=== PATIENT | male | born 1965 | race Caucasian/White ===

== ENCOUNTER 2023-10-21 21:00 | Emergency (ER) | payer OTHER, SELFPAY ==
[2023-10-21] VITALS (7 sets, daily range): BP systolic 136–231; BP diastolic 88–129; PULSE 91–145; RESP 14–30; TEMP 36.3; O2SAT 95–100; BMI 26.2
--- NOTE | 2023-10-21 21:20 | PC.NURSE ---
Patient states that about 5-6 weeks ago he started feeling like he didn't want to be alive. His last SI was at age 18 when he wanted to jump off a bridge. He stopped himself back then. This time he currently does not have a plan to harm himself and does not want to act on it. He feels unloved and unappreciated.
--- NOTE | 2023-10-21 21:40 | PC.NURSE ---
Pt was placed in safe room, is risk SI, pt is refusing to cooperate with safety measures and refusing to participate in assessment. Pt has also refused to given urine for testing. Pt was brought to ED by [facility] and came in through the main door. Pt denies that he has anything in his pockets, stating he was searched by [facility]. Pt states that he will not answer questions until he gets his phone back. Attempted to reassure patient that he could have it back when the provider has seen him and given the OK for him to have it. He continues to refuse participation.
--- NOTE | 2023-10-21 22:02 | ED_ITS ---
HPI - Psych <Ashley Maza, DO - Last Filed: 10/23/23 02:18> General Chief Complaint: Psychiatric Symptoms Stated Complaint: JUANY Time Seen by Provider: 10/21/23 21:33 Source: patient Mode of arrival: Ambulatory History of Present Illness HPI Narrative: Patient 58-year-old male brought in by police with JUANY. He was found at [facility]. He told his family he was done living. He had a suicide attempt at age of 18 he told his family he wanted to do that tonight. Jose A told his son to be ready to get a memorial tattoo of him that was at approximately 8:30 p.m.. him to the ED. he is not willing to participate in any sort care or treatment. Eli-Chintan eventually spoke with Eli. They live in [facility]. She reports over the last 1 month he is become more short tempered he is overall having a harder time. He started therapies only on to 2 sessions he missed the 3rd. This week on Wednesday as does passive he could take the rest of the week off and that he was in a dark place. He is previously said that he no longer wants to live but is not actively suicidal. He did have 1 attempt of suicide at the age of 18 on [facility]. She says that they got into an argument tonight he left the house which is not unusual and started driving. She saw that he was driving up here and thought he was going to [place] which is when she called 911. 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 Related Data Home Medications Medication Instructions Recorded Confirmed duloxetine 30 mg capsule,delayed 90 mg PO DAILY 10/22/23 10/22/23 release liraglutide 0.6 mg/0.1 mL (18 mg/3 1.2 mg SUBCUT DAILY 10/22/23 10/22/23 mL) subcutaneous pen injector (Victoza 2-Elvin) metformin 500 mg tablet,extended 500 mg PO BID 10/22/23 10/22/23 release 24 hr metoprolol succinate 50 mg 50 mg PO DAILY 10/22/23 10/22/23 tablet,extended release 24 hr rosuvastatin 5 mg tablet 5 mg PO DAILY 10/22/23 10/22/23 Allergies Allergy/AdvReac Type Severity Reaction Status Date / Time meperidine Allergy Unknown Verified 10/22/23 09:31 Penicillins Allergy Unknown Verified 10/22/23 09:31 Patient History <Ashley Maza DO - Last Filed: 10/23/23 02:18> tobacco type: smokeless tobacco Substance Use Type: marijuana Exam <Ashley Maza DO - Last Filed: 10/23/23 02:18> Initial Vital Signs Initial Vital Signs: Vital Signs Temperature 97.3 F L 10/21/23 21:11 Pulse Rate 91 H 10/21/23 21:11 Respiratory Rate 14 10/21/23 21:11 Blood Pressure 136/88 10/21/23 21:11 Pulse Oximetry 98 10/21/23 21:11 Oxygen Delivery Method Room Air 10/21/23 21:11 GENERAL: Sitting in corner rocking repeating, wanting phone, good hygiene appears clean has good eye contact CARDIOVASCULAR: peripheral pulses in tact, cap refill <2 sec RESPIRATORY: No respiratory distress, speaks in full sentences without difficulty EXTREMITIES: Normal range of motion, no clubbing or edema. Neurovascularly intact NEUROLOGICAL: Cranial nerves II through XII grossly intact. Normal gait and speech. SKIN: Warm, dry, no petechiae, no rashes or lesions. <Anahi Shanks, DO - Last Filed: 10/22/23 19:01> Initial Vital Signs Initial Vital Signs: Vital Signs Temperature 97.3 F L 10/21/23 21:11 Pulse Rate 91 H 10/21/23 21:11 Respiratory Rate 14 10/21/23 21:11 Blood Pressure 136/88 10/21/23 21:11 Pulse Oximetry 98 10/21/23 21:11 Oxygen Delivery Method Room Air 10/21/23 21:11 Procedures <Ashley Maza DO - Last Filed: 10/23/23 02:18> Procedural Sedation Indication: other ASA Class: II Mallampati Airway Classification: Class II Ketamine: IM Ketamine dose (mg): 400 ED Sedation Level: Moderate (Concious) Patient Tolerated Procedure: Well and No complications Complications: none Course <Ashley Maza DO - Last Filed: 10/23/23 02:18> Orders Ordered: Discontinued Medications Ketamine HCl (Ketamine 500 Mg/5 Ml Inj) 400 mg IM NOW ONE Stop: 10/21/23 22:02 Last Admin: 03/21/24 22:36 Dose: 400 mg Documented By: VIRGEN Vital Signs Vital signs: Vital Signs - 8 hr 10/22/23 18:29 Pulse Rate 88 Respiratory Rate 16 Blood Pressure 138/70 Pulse Oximetry 98 Oxygen Delivery Method Room Air <Anahi Shanks DO - Last Filed: 10/22/23 19:01> Orders Ordered: Discontinued Medications Ketamine HCl (Ketamine 500 Mg/5 Ml Inj) 400 mg IM NOW ONE Stop: 10/21/23 22:02 Last Admin: 10/21/23 22:36 Dose: 400 mg Documented By: VIRGEN Vital Signs Vital signs: Vital Signs - 8 hr 10/22/23 18:29 Pulse Rate 88 Respiratory Rate 16 Blood Pressure 138/70 Pulse Oximetry 98 Oxygen Delivery Method Room Air MDM - Psych <Ashley Maza DO - Last Filed: 10/23/23 02:18> Lab Data 10/21/23 22:40 10/21/23 22:40 Labs: Lab Results 10/21/23 10/21/23 10/21/23 Range/Units 22:40 22:48 22:56 WBC 9.1 (4.5-11.0) X10^3/uL RBC 4.58 (4.5-5.9) X10^6/uL Hgb 15.0 (13.5-17.5) g/dL Hct 42.1 (41-53) % MCV 92.0 (80-100) fL MCH 32.8 (26-34) PG MCHC 35.6 (30-36) % RDW 14.2 (11.6-14.8) % Plt Count 184 (150-400) X10^3/uL Neut % (Auto) 69.6 (50-75) % Lymph % (Auto) 23.6 L (25-40) % [place] % (Auto) 5.5 (3-14) % Eos % (Auto) 0.8 L (2-4) % Baso % (Auto) 0.5 (0-2) % Neut # (Auto) 6300 (0328-9858) /uL Lymph # (Auto) 2200 (3418-9065) /uL [place] # (Auto) 500 (0-900) /uL Eos # (Auto) 100 (0-450) /uL Baso # (Auto) 0 (0-100) /uL Sodium 141 (137-145) mmol/L Potassium 3.3 L (3.4-5.1) mmol/L Chloride 105 (98-107) mmol/L Carbon Dioxide 23 (22-32) mmol/L BUN 18 (9-20) mg/dL Creatinine 0.75 (0.66-1.25) mg/dL Estimated GFR > 60 (>60) mL/min BUN/Creatinine Ratio 24.0 H (6-22) Glucose 192 H (70-100) mg/dL Calcium 9.3 (8.4-10.2) mg/dL Total Bilirubin 1.0 (0.2-1.3) mg/dL AST 29 (17-59) IU/L ALT 32 (<50) IU/L Alkaline Phosphatase 102 (38-126) U/L Total Protein 8.5 H (6.3-8.2) g/dL Albumin 4.9 (3.5-5.0) g/dL Globulin 3.6 (1.7-4.1) g/dL Albumin/Globulin Ratio 1.4 (1.0-2.8) TSH 1.59 (0.47-4.68) uIU/mL Urine Color Yellow Urine Appearance Clear Ur Specific [place] >=1.030 H (1.000-1.035) Urine Protein 1+ H (Negative) Urine Glucose (UA) 2+ H (Negative) g/dL Urine Ketones Trace H (NEGATIVE) Urine Occult Blood Negative (Negative) Urine Nitrate Negative (Negative) Urine Bilirubin Negative (NEGATIVE) Urine Urobilinogen 0.2 (0.2) E.U./dL Ur Leukocyte Esterase Negative (NEGATIVE) Urine RBC None seen (0-5/HPF) Urine WBC None seen (0-5/HPF) Ur Squamous Epith Cells None seen (0-5/HPF) Urine Bacteria None seen (None) Urine Mucus 1+ H (Negative) Ur Culture Indicated? Cult not indicated Vol Urine Centrifuged 10ml (spun) U Opiates 300ng/mL cut Negative (Negative) Ur Oxycodone Screen Negative (Negative) Urine Methadone Screen Negative (Negative) Ur Barbiturates Screen Negative (Negative) U Tricyclic Antidepress Negative (Negative) Ur Phencyclidine Scrn Negative (Negative) Ur Amphetamines Screen Negative (Negative) U Methamphetamines Scrn Negative (Negative) Ur MDMA Scrn (Ecstasy) Negative (Negative) U Benzodiazepines Scrn Negative (Negative) Urine Cocaine Screen Negative (Negative) U Marijuana (THC) Screen Positive H (Negative) Urine pH Normal 6.0 (Normal) Urine Specific [place] Normal (Normal) Ethyl Alcohol < 10 ( - 10) mg/dL Ur Creatinine Normal (Normal) SARS-CoV-2 (PCR) (Negative) 10/22/23 Range/Units 02:10 WBC (4.5-11.0) X10^3/uL RBC (4.5-5.9) X10^6/uL Hgb (13.5-17.5) g/dL Hct (41-53) % MCV (80-100) fL MCH (26-34) PG MCHC (30-36) % RDW (11.6-14.8) % Plt Count (150-400) X10^3/uL Neut % (Auto) (50-75) % Lymph % (Auto) (25-40) % [place] % (Auto) (3-14) % Eos % (Auto) (2-4) % Baso % (Auto) (0-2) % Neut # (Auto) (9259-4304) /uL Lymph # (Auto) (3420-4762) /uL [place] # (Auto) (0-900) /uL Eos # (Auto) (0-450) /uL Baso # (Auto) (0-100) /uL Sodium (137-145) mmol/L Potassium (3.4-5.1) mmol/L Chloride (98-107) mmol/L Carbon Dioxide (22-32) mmol/L BUN (9-20) mg/dL Creatinine (0.66-1.25) mg/dL Estimated GFR (>60) mL/min BUN/Creatinine Ratio (6-22) Glucose (70-100) mg/dL Calcium (8.4-10.2) mg/dL Total Bilirubin (0.2-1.3) mg/dL AST (17-59) IU/L ALT (<50) IU/L Alkaline Phosphatase (38-126) U/L Total Protein (6.3-8.2) g/dL Albumin (3.5-5.0) g/dL Globulin (1.7-4.1) g/dL Albumin/Globulin Ratio (1.0-2.8) TSH (0.47-4.68) uIU/mL Urine Color Urine Appearance Ur Specific [place] (1.000-1.035) Urine Protein (Negative) Urine Glucose (UA) (Negative) g/dL Urine Ketones (NEGATIVE) Urine Occult Blood (Negative) Urine Nitrate (Negative) Urine Bilirubin (NEGATIVE) Urine Urobilinogen (0.2) E.U./dL Ur Leukocyte Esterase (NEGATIVE) Urine RBC (0-5/HPF) Urine WBC (0-5/HPF) Ur Squamous Epith Cells (0-5/HPF) Urine Bacteria (None) Urine Mucus (Negative) Ur Culture Indicated? Vol Urine Centrifuged U Opiates 300ng/mL cut (Negative) Ur Oxycodone Screen (Negative) Urine Methadone Screen (Negative) Ur Barbiturates Screen (Negative) U Tricyclic Antidepress (Negative) Ur Phencyclidine Scrn (Negative) Ur Amphetamines Screen (Negative) U Methamphetamines Scrn (Negative) Ur MDMA Scrn (Ecstasy) (Negative) U Benzodiazepines Scrn (Negative) Urine Cocaine Screen (Negative) U Marijuana (THC) Screen (Negative) Urine pH (Normal) Urine Specific [place] (Normal) Ethyl Alcohol ( - 10) mg/dL Ur Creatinine (Normal) SARS-CoV-2 (PCR) Negative (Negative) MDM Narrative Medical decision making narrative: Patient 58-year-old male presents today by police with IT 8. Initially all we knew was [facility]. He may text messages and remarks that he would jump off. He continues to ask for his phone which was taken away from him. He is refusing to cooperate with blood draw and changing to close. He has not aggressive. I have given him his phone for 10 minutes in order to call his . I personally have called his mother came that phone number in the chart no one answers, later found out she is . I called and left 2 messages for his Eli Patient did not call his Eli on his phone he was given and his phone was then taken away. He continues to not cooperate. Patient is considered high risk he is unwilling to communicate unwilling to cooperate and there is reason to believe that he is actively suicidal and was [place] in [place] police [place] with an JUANY. Patient was given ketamine in order to get blood work and urine so that he can be medically cleared. Once medication was taking effect he was appropriately placed on monitors. He has taken a while to wake up but is more awake alert interactive. After ketamine was given his called back she was informed of the process which she is very well aware of. She agrees that he needs to be placed in a mental health facility. She is aware of the ketamine that was given, understands and agrees. Blood work has been reviewed and overall reassuring. Urine positive for marijuana only. Upon re-questioning why patient is here he reports that he is still high on ketamine but says that he was just driving he has not sure that he was really going to kill himself although text messages and other things state otherwise. 01:45 patient is medically cleared DCR called Patient is sleeping and cooperative throughout the night awaiting for DCR for evaluation. Patient signed out to Dr. Shanks <Anahi Shanks, DO - Last Filed: 10/22/23 19:01> Lab Data Labs: Lab Results 10/21/23 10/21/23 10/21/23 Range/Units 22:40 22:48 22:56 WBC 9.1 (4.5-11.0) X10^3/uL RBC 4.58 (4.5-5.9) X10^6/uL Hgb 15.0 (13.5-17.5) g/dL Hct 42.1 (41-53) % MCV 92.0 (80-100) fL MCH 32.8 (26-34) PG MCHC 35.6 (30-36) % RDW 14.2 (11.6-14.8) % Plt Count 184 (150-400) X10^3/uL Neut % (Auto) 69.6 (50-75) % Lymph % (Auto) 23.6 L (25-40) % [place] % (Auto) 5.5 (3-14) % Eos % (Auto) 0.8 L (2-4) % Baso % (Auto) 0.5 (0-2) % Neut # (Auto) 6300 (6186-3871) /uL Lymph # (Auto) 2200 (8706-8830) /uL [place] # (Auto) 500 (0-900) /uL Eos # (Auto) 100 (0-450) /uL Baso # (Auto) 0 (0-100) /uL Sodium 141 (137-145) mmol/L Potassium 3.3 L (3.4-5.1) mmol/L Chloride 105 (98-107) mmol/L Carbon Dioxide 23 (22-32) mmol/L BUN 18 (9-20) mg/dL Creatinine 0.75 (0.66-1.25) mg/dL Estimated GFR > 60 (>60) mL/min BUN/Creatinine Ratio 24.0 H (6-22) Glucose 192 H (70-100) mg/dL Calcium 9.3 (8.4-10.2) mg/dL Total Bilirubin 1.0 (0.2-1.3) mg/dL AST 29 (17-59) IU/L ALT 32 (<50) IU/L Alkaline Phosphatase 102 (38-126) U/L Total Protein 8.5 H (6.3-8.2) g/dL Albumin 4.9 (3.5-5.0) g/dL Globulin 3.6 (1.7-4.1) g/dL Albumin/Globulin Ratio 1.4 (1.0-2.8) TSH 1.59 (0.47-4.68) uIU/mL Urine Color Yellow Urine Appearance Clear Ur Specific [place] >=1.030 H (1.000-1.035) Urine Protein 1+ H (Negative) Urine Glucose (UA) 2+ H (Negative) g/dL Urine Ketones Trace H (NEGATIVE) Urine Occult Blood Negative (Negative) Urine Nitrate Negative (Negative) Urine Bilirubin Negative (NEGATIVE) Urine Urobilinogen 0.2 (0.2) E.U./dL Ur Leukocyte Esterase Negative (NEGATIVE) Urine RBC None seen (0-5/HPF) Urine WBC None seen (0-5/HPF) Ur Squamous Epith Cells None seen (0-5/HPF) Urine Bacteria None seen (None) Urine Mucus 1+ H (Negative) Ur Culture Indicated? Cult not indicated Vol Urine Centrifuged 10ml (spun) U Opiates 300ng/mL cut Negative (Negative) Ur Oxycodone Screen Negative (Negative) Urine Methadone Screen Negative (Negative) Ur Barbiturates Screen Negative (Negative) U Tricyclic Antidepress Negative (Negative) Ur Phencyclidine Scrn Negative (Negative) Ur Amphetamines Screen Negative (Negative) U Methamphetamines Scrn Negative (Negative) Ur MDMA Scrn (Ecstasy) Negative (Negative) U Benzodiazepines Scrn Negative (Negative) Urine Cocaine Screen Negative (Negative) U Marijuana (THC) Screen Positive H (Negative) Urine pH Normal 6.0 (Normal) Urine Specific [place] Normal (Normal) Ethyl Alcohol < 10 ( - 10) mg/dL Ur Creatinine Normal (Normal) SARS-CoV-2 (PCR) (Negative) 10/22/23 Range/Units 02:10 WBC (4.5-11.0) X10^3/uL RBC (4.5-5.9) X10^6/uL Hgb (13.5-17.5) g/dL Hct (41-53) % MCV (80-100) fL MCH (26-34) PG MCHC (30-36) % RDW (11.6-14.8) % Plt Count (150-400) X10^3/uL Neut % (Auto) (50-75) % Lymph % (Auto) (25-40) % [place] % (Auto) (3-14) % Eos % (Auto) (2-4) % Baso % (Auto) (0-2) % Neut # (Auto) (9937-6100) /uL Lymph # (Auto) (7656-9129) /uL [place] # (Auto) (0-900) /uL Eos # (Auto) (0-450) /uL Baso # (Auto) (0-100) /uL Sodium (137-145) mmol/L Potassium (3.4-5.1) mmol/L Chloride (98-107) mmol/L Carbon Dioxide (22-32) mmol/L BUN (9-20) mg/dL Creatinine (0.66-1.25) mg/dL Estimated GFR (>60) mL/min BUN/Creatinine Ratio (6-22) Glucose (70-100) mg/dL Calcium (8.4-10.2) mg/dL Total Bilirubin (0.2-1.3) mg/dL AST (17-59) IU/L ALT (<50) IU/L Alkaline Phosphatase (38-126) U/L Total Protein (6.3-8.2) g/dL Albumin (3.5-5.0) g/dL Globulin (1.7-4.1) g/dL Albumin/Globulin Ratio (1.0-2.8) TSH (0.47-4.68) uIU/mL Urine Color Urine Appearance Ur Specific [place] (1.000-1.035) Urine Protein (Negative) Urine Glucose (UA) (Negative) g/dL Urine Ketones (NEGATIVE) Urine Occult Blood (Negative) Urine Nitrate (Negative) Urine Bilirubin (NEGATIVE) Urine Urobilinogen (0.2) E.U./dL Ur Leukocyte Esterase (NEGATIVE) Urine RBC (0-5/HPF) Urine WBC (0-5/HPF) Ur Squamous Epith Cells (0-5/HPF) Urine Bacteria (None) Urine Mucus (Negative) Ur Culture Indicated? Vol Urine Centrifuged U Opiates 300ng/mL cut (Negative) Ur Oxycodone Screen (Negative) Urine Methadone Screen (Negative) Ur Barbiturates Screen (Negative) U Tricyclic Antidepress (Negative) Ur Phencyclidine Scrn (Negative) Ur Amphetamines Screen (Negative) U Methamphetamines Scrn (Negative) Ur MDMA Scrn (Ecstasy) (Negative) U Benzodiazepines Scrn (Negative) Urine Cocaine Screen (Negative) U Marijuana (THC) Screen (Negative) Urine pH (Normal) Urine Specific [place] (Normal) Ethyl Alcohol ( - 10) mg/dL Ur Creatinine (Normal) SARS-CoV-2 (PCR) Negative (Negative) ECG Data Attestation: I personally reviewed and interpreted this ECG as follows: Interpretation: Sinus rhythm rate 80 AK 164 QRS is 78 QTC 419, no acute ST changes appreciated. Patient EKG was requested by psych facility for placement. [facility] Narrative Medical decision making narrative: Patient 58-year-old male presents today by police with IT 8. Initially all we knew was [place]. He may text messages and remarks that he would jump off. He continues to ask for his phone which was taken away from him. He is refusing to cooperate with blood draw and changing to close. He has not aggressive. I have given him his phone for 10 minutes in order to call his . I personally have called his mother came that phone number in the chart no one answers, later found out she is . I called and left 2 messages for his Eli Patient did not call his Eli on his phone he was given and his phone was then taken away. He continues to not cooperate. Patient is considered high risk he is unwilling to communicate unwilling to cooperate and there is reason to believe that he is actively suicidal and was brought in [place] police [place] with an JUANY. Patient was given ketamine in order to get blood work and urine so that he can be medically cleared. Once medication was taking effect he was appropriately placed on monitors. He has taken a while to wake up but is more awake alert interactive. After ketamine was given his called back she was informed of the process which she is very well aware of. She agrees that he needs to be placed in a mental health facility. She is aware of the ketamine that was given, understands and agrees. Blood work has been reviewed and overall reassuring. Urine positive for marijuana only. Upon re-questioning why patient is here he reports that he is still high on ketamine but says that he was just driving he has not sure that he was really going to kill himself although text messages and other things state otherwise. 01:45 patient is medically cleared DCR called Patient is sleeping and cooperative throughout the night awaiting for DCR for evaluation. Patient signed out to Dr. Shanks 10/22/2023 Dr. Shanks: Patient signed out to myself by Dr. Maza. Patient met with DCR Kadie Mccoy. At this time plan for voluntary placement with goal to be [facility]. DCR had sat plan up with Eli Cervantes, get him at noon and for her to drive him down and check himself into [facility] but discussed we can call to see if we can arrange a bed in advance. We did discuss that if patient elected to leave and not have voluntary placement we are 2 re-contact the DCR. We called [facility], they do not have any inpatient beds. Spoke with patient and family they are interested in voluntary placement currently. [facility] has been available and patient has been accepted with plan for transport this evening by Yris MAHARAJ. Discharge Plan Departure Patient Disposition: Xfer Psychiatric Hosp Clinical Impression: Depression with suicidal ideation Prescriptions: No Action metoprolol succinate 50 mg tablet extended release 24 hr 50 mg PO DAILY metformin 500 mg tablet extended release 24 hr 500 mg PO BID rosuvastatin 5 mg tablet 5 mg PO DAILY duloxetine 30 mg capsule,delayed release(DR/EC) 90 mg PO DAILY Victoza 2-Elvin 0.6 mg/0.1 mL (18 mg/3 mL) pen injector 1.2 mg SUBCUT DAILY Patient Comments: stopped due to cost
--- NOTE | 2023-10-21 22:20 | PC.NURSE ---
The patient was given his phone to make a phone call and was given 5 minutes to use his phone and he remained in the corner and did not touch the phone in the time he had. He continues to remain uncooperative with the hospital staff.
[2023-10-21] MEDS: KETAMINE 500 MG/5 ML INJ 400 MG IM (22:36)
--- NOTE | 2023-10-21 22:36 | PC.NURSE ---
Son called back, this RN talked to and told her Dr. Maza would call her back shortly. : Eli Mccall
[2023-10-21 22:46] LABS: Add Manual Diff / Slide Review NO; Basophils Absolute Auto 0 /uL (0-100); Basophils Percent Auto 0.5 % (0-2); Eosinophils Absolute Auto 100 /uL (0-450); Eosinophils Percent Auto 0.8 % (2-4); Hematocrit 42.1 % (41-53); Lymphocytes Absolute Auto 2200 /uL (1100-4500); Lymphocytes Percent Auto 23.6 % (25-40); Mean Corpuscular HGB Conc 35.6 % (30-36); Mean Corpuscular Hemoglobin 32.8 PG (26-34); Monocytes Absolute Auto 500 /uL (0-900); Monocytes Percent Auto 5.5 % (3-14); Neutrophils Absolute Auto 6300 /uL (1500-7000); Neutrophils Percent Auto 69.6 % (50-75); Platelet Count 184 X10^3/uL (150-400); Red Blood Cell Count 4.58 X10^6/uL (4.5-5.9); Red Cell Distribution Width 14.2 % (11.6-14.8); White Blood Cell Count 9.1 X10^3/uL (4.5-11.0)
[2023-10-21 22:55] LABS: UR Morphine/Opiate cutoff 300 Negative (Negative); Ur Creatinine Normal (Normal); Ur Specific Gravity Normal (Normal); Urine Amphetamines Negative (Negative); Urine Barbiturates Negative (Negative); Urine Benzodiazepines Negative (Negative); Urine Cocaine Negative (Negative); Urine MDMA Negative (Negative); Urine Methadone Negative (Negative); Urine Methamphetamines Negative (Negative); Urine Oxycodone Negative (Negative); Urine Phencyclidine Negative (Negative); Urine Tetrahydrocannabinol Positive (Negative); Urine Tricyclic Antidepressant Negative (Negative); Urine pH Normal (Normal)
[2023-10-21 22:56] LABS: Alanine Aminotransferase 32 IU/L (<50); Albumin 4.9 g/dL (3.5-5.0); Albumin Globulin Ratio 1.4 (1.0-2.8); Alkaline Phosphatase 102 U/L (38-126); Aspartate Aminotransferase 29 IU/L (17-59); Blood Urea Nitrogen 18 mg/dL (9-20); Calcium 9.3 mg/dL (8.4-10.2); Carbon Dioxide 23 mmol/L (22-32); Chloride 105 mmol/L (98-107); Estimated Glomerular Filt Rate > 60 mL/min (>60); Ethanol (ETOH) < 10 mg/dL; Globulin 3.6 g/dL (1.7-4.1); Glucose 192 mg/dL (70-100); HEMOLYSIS 16 (0-50); Potassium 3.3 mmol/L (3.4-5.1); Sodium 141 mmol/L (137-145); Total Protein 8.5 g/dL (6.3-8.2)
[2023-10-21 22:58] LABS: Appearance Urine UA CLEAR; Bilirubin Urine UA NEGATIVE (NEGATIVE); Color Urine UA YELLOW; Glucose Urine UA 2+ g/dL (Negative); Ketones Urine UA TRACE (NEGATIVE); Leukocyte Esterase Urine UA NEGATIVE (NEGATIVE); Nitrite Urine UA NEGATIVE (Negative); Occult Blood Urine UA NEGATIVE (Negative); Protein Urine UA 1+ (Negative); Specific Gravity Urine UA >=1.030 (1.000-1.035); Urobilinogen Urine UA 0.2 E.U./dL (0.2)
[2023-10-21 23:06] LABS: Bacteria Urine None Seen; RBC Urine None Seen (0-5/HPF); Urine Volume 10mL (spun); WBC Urine None Seen (0-5/HPF)
[2023-10-21 23:07] LABS: Culture Indicated Urine Cult Not Indicated; Mucus Urine 1+ (Negative); Squamous Epithelial Cell Urine None Seen (0-5/HPF)
[2023-10-21 23:50] LABS: TSH w/ Reflex to FT4 1.59 uIU/mL (0.47-4.68)
--- NOTE | 2023-10-21 23:50 | PC.NURSE ---
Provider attempted to contact family prior to giving medication, pt was given his phone at 221 and told to she had 5 minute to contact his /family, phone was removed at 2218, pt had not touched the phone. Pt sat in the corner of the room from the time he entered rm 13, he remained in the corner on the floor and rocked. This RN explained protocol to the patient and the need for labs, he refused, the provider explained the process that SI/SA pt have to go through when here and that labs need to get done, he continued to refuse and attempting to bargain for his phone. At 2336 Pt was given ketamine IM for sedation so that labs could be collected. Pt tolerated sedation, this RN was at the bedside until 2340. Pt has 1:[address] Pt unable to participate in assssments at this time due to medication.
[2023-10-22] VITALS (8 sets, daily range): BP systolic 127–157; BP diastolic 63–97; PULSE 84–112; RESP 9–25; TEMP 36.7; O2SAT 97–98
--- NOTE | 2023-10-22 00:15 | PC.NURSE ---
Phone for pt, he is currently on the phone with her.
[2023-10-22 02:26] LABS: COVID19 -Nasal RAPID Negative (Negative)
--- NOTE | 2023-10-22 04:36 | PC.NURSE ---
Pt currently sleeping, will complete assessment when pt awakens.
--- NOTE | 2023-10-22 09:08 | PC.NURSE ---
Addendum entered by Carito Rosales R.N. 10/22/23 09:30: Patients and sister are here visiting. Addendum entered by Carito Rosales R.N. 10/22/23 09:16: Late Entry: Patients oxygen saturation is 97% on RA. Original Note: Patient was making jerking moments to the right side with his arm out. This RN asked patient if he was having a seizure. He states that he was only having a tic, states that he has tourette syndrome to this RN! VS done and charted. Notified Natalya his ER Nurse.
--- NOTE | 2023-10-22 13:09 | CM.SWNOTE ---
ED VICE PRESIDENT DIVERSITY Assessment VICE PRESIDENT DIVERSITY - Personnel Research Psychologist Assessment VICE PRESIDENT DIVERSITY - Personnel Research Psychologist Assessment Start: 10/22/23 11:57 Freq: Status: Active Protocol: Document 10/22/23 11:57 BDL (Rec: 10/22/23 13:08 BDL [id number]) VICE PRESIDENT DIVERSITY/Personnel Research Psychologist Assessment Time Spent with Patient Start date 10/22/23 Visit Start Time 11:25 End date 10/22/23 Visit End Time 11:55 Total time Care Management spent on 30 patient visit-in minutes Mental Health Screening Include Onset, Duration, Intensity Presenting Problem Pt presents to the ED via law enforcement [facility] for suicidal ideation. Precipitating Event(s) Pt reports that there have been a lot of changes in his routine at home that has compounded and added to his stress. Pt reports that he was feeling unwanted, unloved, unappreciated, and ignored. Pr reports that he left his home to take a drive and was texting his 22 y/o son janet norman. He said he apologized and I am thinking like no you didn't, then he said I'm just like his bio dad and that was just a reflection of all my thoughts and feelings I had been having . Pt sated that he has been in a dark place for a while now. Pt also reported he is bullied by a 13 y/o kid at work. Pt reports that he turned a group of kids in for skipping class to vape in the bathroom and since those kids found out that it was him they have been mewing, but I know what it means it's a big fuck you I don't like you. Pt reports that he has asked for a change in work assignment that is being honored. Pt also reported that when he was 18 y/o her had [place]. Pt reports that his friends were calling him dumb and retarded . Pt reports that he walked [place] no the bridge during 20-25 mph wind gusts. I didn't care I just walked to the middle of the bridge and sat there awhile thinking.. I decided not to and crawled back towards my car trying not to fall. Pt reports that he was picked up by police and taken back to the police station where he met with a social media coordinator from [facility]. She did the same thing like you are doing now gathering information... then she left and didn't know I could still hear her and she told the police don't people know they're supposed to jump off the other side on [facility] so we don't have to get called. That has been my nemesis and my demon [place]. Pt reports that he was driving towards the bridge to face my demon, I didn't plan to jump just wanted to be free from my demon. Pt then reports that the police showed up as he parked in a parking lot close to the bridge at [facility]. That is when they showed up ... I love you for it. Pt's had been in the room during this interaction. I just wanted to get that person out of my head. Pt also reported a recent med change for migraines. Pt reports he had an increase in duloxotine and one of the side effects is SI. Patient Strengths PT presents w/ insight into his OCD disorder. Pt's is a strong support for him. Current Behavioral Health Provider(s) Therapist: SUSAN Flores @ Include Facility, Provider, Ph. # no contact info Psychiatrist: Aisha Encarnacion MD @ no contact info PCP: Yaritza Miranda MD @ [phone] Psych. Hx Mental Health and Chemical PT reports hx of OCD, anxiety, Dependency and depression. Family Hx of Behavioral Abuse Per EMR pt uses marijuana. None other use reported. Psychiatric Hospitalizations (date(s)/ None reported. location) Psychosocial information & Support Pt is a 58 y/o male who lives Systems w/ his and 3 kids in [place]. Pt and care for two younger foster children as well as their 22 y/o son w/ autism. 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 Pt reports that he enjoys his work. Legal Concerns Legal Matters - Outstanding Issues None reported. Mental Status Orientation (Person/Place/Time) A/Ox4. Stated Mood A lot better. Affect (Congruent with Mood?) Dysphoric, anxious, and tearful. Thought Content - Specify/Describe Pt is focused on facing his Obsessions, Delusions, Hallucinations demons. Pt also described his OCD and the changes in his routine that have began to compile and become overwhelming. Thought Processes (Ejfeqgq-Gbqvsyxi-Xiuf Logical/coherent. Dqvyqqwt-Zjlwymlh-Owwluocwzo- Ogbulzhjxshzqz-Whanshv-Yyqfjiszuuup- Thought Blocking) Speech (Pifypd-Dkpb-Zlgshiw-Rapid-Soft- Normal/soft. Loud-Pressured) Motor (Qqtrob-Yftxmbhqn-Dhkm-Other) Normal. Insight (Ynfi-Xphj-Xcdu/Limited) Fair. Judgement (Hziz-Nexz-Zkdh/Limited) Fair. Impulse Control (Adequate-Impaired) Adequate. Memory (Qdpqsmbzk-Aefzxs-Bztglz, Intact. Impaired-Intact) Concentration (Intact-Impaired) Intact. Attention (Intact-Impaired) Intact. Behavior (Appropriate-Inappropriate) Appropriate. Risk Assessment Suicidal Ideation (Plan) No Homicidal Ideation (Plan) No Comment Pt denies present SI. Pt does have a hx of SI including an attempt at age 18. Pt reports no hx of auditory or visual hallucinations outside of receiving Ketamine during this ED stay. It felt like I was going to . Intervention Intervention VICE PRESIDENT DIVERSITY enters the room and pt is lying in bed w/ blankets no shirt. Pt's is sitting at bedside. Pt gives permission for to remain in the room during interaction. Pt and begin describing their home life and are discussing changes that can be made to reduce stress. Sometimes our 22 y/o tries to help but he will do weird things like give the other kids their food as a reward before they do a chore. PT also described his OCD. Sometimes you do things your way and this isn't a jab but like the kids shoes were by the table and you just kicked them away until later... that' s not wrong but I would do it differently and pick them up. Pt described that he has a large supply of paper towels at home stacked to the ceiling . I can't dry my hands w/ a towel it's not clean if it's been used once it has germs so I like to use paper towels they are spot cleaner. Pt reports that in addition to his OCD he has experienced anxiety and depression for years. PT recently began seeing a therapist @ [facility] and does not have a follow up appointment scheduled yet. PT also reports that his psychiatrist Sayra Encarnacion and his PCP Yaritza Miranda work together on medication management. Pt reports no family hx of YOVANI or MH concerns My [place] side would never talk about it and my dad.. well yeah no none. Pt cites increased stress and hx of trauma as the reasons for his current mental status. Pt described his suicide attempt at age 18 and reports a bad experience w/ the social media coordinator who evaluated him. Pt states that he was trying to get that person out of my head which is why he was driving towards [place]. Pt is voluntary and willing to seek placement. Pt is calm and cooperative. Pt was evaluated by the [facility] overnight who informed staff that if pt changes to [facility] call them to re-dispatch. It is the opinion of this VICE PRESIDENT DIVERSITY that the pt would benefit from inpatient treatment. VICE PRESIDENT DIVERSITY discussed this w/ ED provider who indicated agreement and understanding. Plan RA Plan VICE PRESIDENT DIVERSITY to seek voluntary inpatient treatment. SUSAN Collins, [facility]
== END 2023-10-22 18:50 ==
PROVIDERS: Emergency Medicine; Emergency Provider Emergency Medicine
DX: R45.851 Suicidal ideations (principal); F32.9 Major depressive disorder, single episode, unspecified; Z20.822 Contact with and (suspected) exposure to COVID-19
CPT/HCPCS: 80053; 80305; 80320; 81001; 84443; 85025; 87635; 93005; 99152; 99153; 99285